=== PATIENT | male | born 1985 | race African-American/Black ===

== ENCOUNTER 2020-01-06 19:34 | Emergency (ER) | payer MEDICAID, SELFPAY ==
[2020-01-06 19:36] VITALS: BP 133/67; PULSE 118; RESP 21; TEMP 37.7; O2SAT 97; BMI 22.4
--- NOTE | 2020-01-06 19:56 | RAD_ITS ---
STUDY: X-RAY - RIGHT ANKLE REASON FOR EXAM: Male, 34 years old. NKI, FEELS TIGHT, SWOLLEN TECHNIQUE: 3 view(s) of the ankle. COMPARISON: None. FINDINGS: Normal visualized distal tibia and fibula. Normal medial and lateral malleoli. Normal tibiotalar articulation and ankle mortise. Normal visualized talus and calcaneus. The visualized subtalar, talonavicular, calcaneocuboid and tarsal articulations are normal. Diffuse soft tissue swelling. RAD/Ankle min 3 Views IMPRESSION: Diffuse nonspecific soft tissue swelling without underlying bone or joint abnormality. Electronically Signed: Anat Up MD at 20:27 EDT , Service support ,
--- NOTE | 2020-01-06 19:58 | ED.VISSUMM ---
- ER Visit Summary Date of Service: 01/06/20 Chief Complaint: Right ankle pain History of Present Illness: The patient is a 34 M who presents with right ankle pain that began tonight. Patient states the pain began suddenly tonight. Patient states the pain is constant. Patient denies twisting his ankle or falling. Patient describes the pain is sharp. Patient states pain is worse with any movement or weightbearing. Patient is to some tingling in his right great toe. Patient states he had a similar episode in the past from an abscess. Patient states he was trying to use warm compresses. Patient denies any discharge or drainage. Patient denies any fevers or chills. Physical Examination: Vital signs are stable. Patient is afebrile. Patient is in no acute distress. Musculoskeletal exam reveals tenderness, edema, and mild erythema over the right ankle. Range of motion was limited in all motions of the right ankle secondary to pain. There is no deformity noted. Pedal pulses are equal bilaterally. Sensation was intact to light touch in all digits. Capillary refill was less than 2 seconds in all digits. There is no tenderness over the proximal fibula or fifth metatarsal area. Test Results: CBC shows a mild leukocytosis of 16.6. Comprehensive metabolic profile was essentially within normal limits. Uric acid was obtained and was normal at 3.2. X-rays of the right ankle were obtained. There is soft tissue swelling but no acute fracture. Emergency Department Course and Treatment: Patient was given a dose of ibuprofen here. Patient is feeling better on reevaluation. Patient was given a prescription for Keflex. Patient was given his first dose here. Patient was instructed to keep the leg elevated. Patient was instructed to follow-up with his primary care physician in 3 to 5 days. Patient understood and was agreeable with the plan. All questions were answered. Disposition: Discharge home Impression: Cellulitis right ankle This note was generated with [employer] dictation software. It may contain incorrect words, spelling, and punctuation that were not noted in review of the chart prior to signing ED Disposition - Plan for ED Patient: Disposition: Home or Assisted Living Diagnosis: Cellulitis of right ankle Instructions: ED Cellulitis Prescriptions: Cephalexin [Keflex] 500 mg PO Q6 #40 cap Transmission Status: Pending to [id number] Referrals: Criss Bergman [NON-STAFF] - 3-5 Days
[2020-01-06] MEDS: Ibuprofen 400 MG Tablet 800 MG PO (20:06)
[2020-01-06 20:16] LABS: Absolute Lymphocyte Count 0.65 X10^3/uL (0.83-4.51); Absolute Neutrophil Count 14.7 X10^3/uL (2.0-7.7); Basophil# 0.02 X10^3/uL; Basophil% 0.1 % (0-1); Eosinophil# 0.09 X10^3/uL; Eosinophils% 0.5 % (0-5); Hematocrit 35.7 % (40-54); Hemoglobin 11.8 g/dL (13.0-16.5); Lymphocyte # 0.65 X10^3/ul (4.0); Lymphocyte % 3.9 % (19-41); Mean Corp Hgb Conc 33.1 g/dL (32-36); Mean Corpuscular Hgb 31.6 pg (27.0-32.0); Mean Corpuscular Volume 95.7 fL (80-94); Mean Platelet Vol. 9.3 fl (6.2-12.0); NRBC Flagged by Analyzer 0 % (0-5); Neutrophil # 14.71 X10^3/uL (2.7-7.7); Platelet Count 221 K/mm3 (150-450); RBC Distribution Width CV 12.4 % (11.6-14.6); RBC Distribution Width SD 43.3 fl (35.1-43.9); Red Blood Count 3.73 M/mm3 (4.6-6.2); White Blood Count 16.6 K/mm3 (4.4-11.0)
[2020-01-06 20:50] LABS: ALB/GLOB Ratio 0.9 RATIO (0.9-2.4); AST(SGOT) 26 U/L (15-37); Alanine Aminotransfer ALT/SGPT 34 U/L (16-61); Albumin, Serum 3.5 g/dL (3.2-5.0); Alkaline Phosphatase 83 U/L (45-117); Anion Gap 6 (5-15); BUN 16 mg/dL (7-18); BUN/Creat Ratio 14.2 RATIO (10-20); Calcium,Total 8.6 mg/dL (8.5-10.1); Chloride 108 mmol/L (98-107); Creatinine, Serum 1.13 mg/dL (0.70-1.30); EST Glomerular Filtration Rate 78 mL/min (>60); Est Glom Filt Rate - Afr Amer 94 mL/min (>60); Globulin 4.1 g/dL (2.2-4.2); Glucose 108 mg/dL (74-106); Potassium 3.7 mmol/L (3.5-5.1); Protein, Total 7.6 g/dL (6.4-8.2); Sodium Level 141 mmol/L (136-145); Uric Acid 3.2 mg/dL (3.5-7.2)
[2020-01-06 20:58] VITALS: BP 120/70; PULSE 99; RESP 18; TEMP 37.2; O2SAT 96
[2020-01-06 21:27] VITALS: BP 106/59; PULSE 94; RESP 16; TEMP 37.2; O2SAT 96
[2020-01-06] MEDS: Cephalexin 500 MG Capsule PO (22:27)
[2020-01-06 22:30] VITALS: BP 97/57; PULSE 77; RESP 19; O2SAT 96
== END 2020-01-06 22:30 | disposition home or self-care (01) ==
PROVIDERS: Emergency Provider Emergency Medicine
DX: L03.115 Cellulitis of right lower limb (principal)
CPT/HCPCS: 73610; 80053; 84550; 85025; 99284; A4216

== ENCOUNTER 2022-05-20 13:34 | Emergency (ER) | payer MEDICAID, SELFPAY ==
[2022-05-20 13:35] VITALS: BP 132/97; PULSE 98; RESP 22; TEMP 37.6; O2SAT 98; BMI 20.3
--- NOTE | 2022-05-20 14:39 | EX.ED.SAOD ---
HPI History of Present Illness Chief Complaint: Substance Abuse Narrative Narrative: 37-year-old male with history of paranoid schizophrenia and drug abuse presenting with altered mental status. He admits to doing methamphetamine a couple of hours ago, and believes there was something else that he used. He is currently audibly and visually hallucinating. Other than to say he hears his family members and his bitch he cannot tell me what they are saying to him. He states that he did call 911 because he did this at his daughter's house and did not want to overdose there. He states he is overdosed before. [facility] Medical History Drug use Paranoid schizophrenia Home Medications NK 05/20/22 [History Last Taken Unknown] Allergy/AdvReac Type Severity Reaction Status Date / Time No Known Allergies Allergy Verified 05/20/22 13:35 Social History Smoking Status: Current every day smoker tobacco type: cigarettes ROS ROS ED Review of Systems ROS Unobtainable: Denies due to encephalopathy Constitutional Constitutional ED: Denies fever(s) or subjective Eyes Eyes: Denies change in vision or diplopia ENT ENT ED: Denies rhinorrhea or sore throat Cardiovascular Cardiovascular: Denies chest pain Respiratory/Chest Respiratory/Chest: Denies cough or dyspnea Gastrointestinal Gastrointestinal: Denies abdominal pain or constipation Genitourinary Genitourinary ED: Denies dysuria Musculoskeletal Musculoskeletal: Denies arthralgias, back pain or myalgias Integumentary Denies abscess or Abrasions Neurologic Neurologic: Denies headache(s) Psychiatric Psychiatric: Reports auditory hallucinations, hallucinations, paranoia and visual hallucinations EXAM Physical Exam Const Vital Signs: 05/20/22 13:35 Temperature 99.6 F H Temperature Source Oral Pulse Rate 98 Respiratory Rate 22 H Blood Pressure 132/97 H Blood Pressure Mean 108 Pulse Ox 98 Oxygen Delivery Method Room Air Positive well nourished and unkempt General Appearance ED: unkempt and irritable HEENT Reports moist mucous membranes Eyes PERRL Neck no lymphadenopathy Chest Wall inspection of chest normal Resp normal respiratory effort and clear to auscultation bilaterally Auscultation: Negative for rales, rhonchi or wheezes Cardio regular rate and regular rhythm Neuro CN's II-XII intact bilaterally Sensorium / Orientation: alert and confused Motor Exam: strength 5/5 throughout Psych Appearance: unkempt Attitude: paranoid Activity / Motor Behavior: psychomotor agitation Mood & Affect: irritable Thought Content: No suicidality, No homicidality and hallucination(s) Positive for auditory and visual Attention / Concentration: attention grossly impaired Insight: fair Judgement: fair MDM MDM MDM Narrative Medical decision making narrative: 37-year-old male with history of paranoid schizophrenia presenting after using methamphetamine a couple of hours ago. He believes he might have another drug in his system. He is hallucinating and seeing his family. He cannot relate what is going on to me. His vital signs are stable he is afebrile. I did obtain some blood work and his CBC and CMP were unremarkable. I suspect he is just high on methamphetamine. He wanted to see if he had other drugs in his system. Prior to be able to test his urine the patient left the emergency room. Is not homicidal or suicidal. I believe he is a harm to himself or others. He is hallucinating and paranoid but he is a paranoid schizophrenic. Impression: 1. History of paranoid schizophrenia 2. History of methamphetamine abuse Lab Data Labs: Laboratory Results - last 24 hr 05/20/22 05/20/22 13:46 13:46 WBC 6.0 RBC 5.02 Hgb 15.7 Hct 47.2 MCV 94.0 MCH 31.3 MCHC 33.3 RDW Std Deviation 42.8 RDW Coeff of Guevara 12.3 Plt Count 240 MPV 10.4 Immature Gran % (Auto) 0.200 Neut % (Auto) 69.3 Lymph % (Auto) 19.2 [place] % (Auto) 10.3 H Eos % (Auto) 0.5 Baso % (Auto) 0.5 Absolute Neuts (auto) 4.2 Absolute Lymphs (auto) 1.16 Nucleated RBC % 0 Sodium 141 Potassium 3.5 Chloride 106 Carbon Dioxide 25.0 Anion Gap 10 BUN 15 Creatinine 1.13 Estim Creat Clear Calc 77.71 Est GFR (MDRD) Af Amer 93 Est GFR (MDRD) Non-Af 77 BUN/Creatinine Ratio 13.3 Glucose 105 Calcium 9.4 Total Bilirubin 0.60 AST 15 ALT 25 Alkaline Phosphatase 62 Total Protein 8.5 H Albumin 4.2 Globulin 4.3 H Albumin/Globulin Ratio 1.0 Discharge Plan Triage Chief Complaint: Substance Abuse Other Complaint: General Illness ED Provider: Christofer Jernigan Dx/Rx/DC Orders Prescriptions: No Action NK Primary Care Provider: Care Physician,No Primary Referrals: Care Physician,No Primary [Primary Care Provider] - Disposition Disposition: Elopement
[2022-05-20 14:50] LABS: Absolute Lymphocyte Count 1.16 X10^3/uL (0.83-4.51); Absolute Neutrophil Count 4.2 X10^3/uL (2.0-7.7); Basophil# 0.03 X10^3/uL; Basophil% 0.5 % (0-1); Eosinophil# 0.03 X10^3/uL; Eosinophils% 0.5 % (0-5); Hematocrit 47.2 % (40-54); Hemoglobin 15.7 g/dL (13.0-16.5); Lymphocyte # 1.16 X10^3/ul (0.83-4.51); Lymphocyte % 19.2 % (19-41); Mean Corp Hgb Conc 33.3 g/dL (32-36); Mean Corpuscular Hgb 31.3 pg (27.0-32.0); Mean Platelet Vol. 10.4 fl (6.2-12.0); Monocyte# 0.62 X10^3/uL; Monocyte% 10.3 % (0-10); NRBC Flagged by Analyzer 0 % (0-5); Neutrophil # 4.19 X10^3/uL (2.7-7.7); Neutrophil % 69.3 % (47-70); Platelet Count 240 K/mm3 (150-450); RBC Distribution Width CV 12.3 % (11.6-14.6); RBC Distribution Width SD 42.8 fl (35.1-43.9); Red Blood Count 5.02 M/mm3 (4.6-6.2)
[2022-05-20 15:06] LABS: AST(SGOT) 15 U/L (15-37); Alanine Aminotransfer ALT/SGPT 25 U/L (16-61); Albumin, Serum 4.2 g/dL (3.2-5.0); Alkaline Phosphatase 62 U/L (45-117); Anion Gap 10 (5-15); BUN 15 mg/dL (7-18); BUN/Creat Ratio 13.3 RATIO (10-20); Calcium,Total 9.4 mg/dL (8.5-10.1); Chloride 106 mmol/L (98-107); Creatinine, Serum 1.13 mg/dL (0.70-1.30); EST Glomerular Filtration Rate 77 mL/min (>60); Est Glom Filt Rate - Afr Amer 93 mL/min (>60); Estimated Creatinine Clearance 77.71 ml/min; Globulin 4.3 g/dL (2.2-4.2); Glucose 105 mg/dL (74-106); Potassium 3.5 mmol/L (3.5-5.1); Protein, Total 8.5 g/dL (6.4-8.2); Sodium Level 141 mmol/L (136-145)
--- NOTE | 2022-05-20 15:10 | NURSING ---
Pt accused this RN and staff of talking about him and threatening him, stated that someone was in his room when he was alone in his room. This RN attempted to reassure pt that he was alone and that there weren't any people in the hallway talking about him. Pt denied hearing voices, however said that he was hearing people at that moment in spite of no person speaking. Pt IV was removed d/t concern that pt would elope. Pt eventually pulled all monitoring devices off self, dressed and left without further treatment.
[2022-05-20 15:39] LABS: Alcohol, Blood (Medical)-Serum < 3.0 mg/dL
== END 2022-05-20 15:00 | disposition left against medical advice (07) ==
PROVIDERS: Emergency Provider Student in an Organized Health Care Education/Training Program; Visit Provider Student in an Organized Health Care Education/Training Program
DX: F20.0 Paranoid schizophrenia (principal); F17.210 Nicotine dependence, cigarettes, uncomplicated
CPT/HCPCS: 80053; 82077; 85025; 99283; A4216

== ENCOUNTER 2022-05-22 05:21 | Emergency (ER) | payer MEDICAID, SELFPAY ==
[2022-05-22 05:21] VITALS: BP 117/65; PULSE 105; RESP 18; TEMP 35.7; O2SAT 100; BMI 19.6
--- NOTE | 2022-05-22 06:14 | EX.ED.VIS.PS ---
HPI HPI - Psych History of Present Illness Chief Complaint: Mental Health Informant: patient Narrative Narrative: From records noting concerns for history of paranoid schizophrenia. Patient presenting increasing paranoia. He states he just got out [facility] ago. He states he would hear voices that would call him however in present he was just learned to ignore them. Since being out, he states he still hearing voices again. He states there was another individual that got out of parole, he states he is concerned that person is out to get him. He states he is friends with this individual previously. Reporting there could have been something involved with the other individual however he would not go into detail about this. He does have history of methamphetamine use he states last use was yesterday morning. Note he was seen 2 days ago in the ED for meth use. He left the department. He states he called the police 3 times this evening due to fear of his life. He states when the police showed up his finger went away. When asked if he sees a counselor or psychiatrist he reports he has people to talk to. Prior similar symptoms: Yes PFSH PFSH Medical History Drug use Paranoid schizophrenia Home Medications NK 05/20/22 [History Last Taken Unknown] Allergy/AdvReac Type Severity Reaction Status Date / Time No Known Allergies Allergy Verified 05/20/22 13:35 Social History Smoking Status: Current every day smoker tobacco type: cigarettes ROS ROS ED Constitutional Constitutional ED: Denies chills, fever(s) or sweats Eyes Eyes: Denies change in vision ENT ENT ED: Denies dysphagia or sore throat Cardiovascular Cardiovascular: Denies chest pain, leg edema, palpitations or racing heartbeat Respiratory/Chest Respiratory/Chest: Denies cough, dyspnea or dyspnea on exertion Gastrointestinal Gastrointestinal: Denies abdominal pain, diarrhea, nausea or vomiting Genitourinary Genitourinary ED: Denies dysuria, hematuria or urinary frequency Musculoskeletal Musculoskeletal: Denies back pain, extremity pain or neck pain Integumentary Denies rash or wounds Neurologic Neurologic: Denies headache(s), paresthesias or weakness Psychiatric Psychiatric: Reports other Details: Paranoia, auditory and visual hallucinations ; Denies suicidal ideation or suicidal thoughts EXAM Physical Exam Const Vital Signs: 05/22/22 05:21 Temperature 96.2 F L Temperature Source Temporal Pulse Rate 105 H Respiratory Rate 18 Blood Pressure 117/65 Blood Pressure Mean 82 Pulse Ox 100 Oxygen Delivery Method Room Air Positive well nourished and well developed Constitutional Narrative: Patient paranoid looking around out the door, he would speak quietly. General Appearance ED: well developed and NAD HEENT Reports moist mucous membranes normocephalic and atraumatic Eyes PERRL, EOMs intact bilaterally and conjunctivae normal General Eye ED: Yes normal appearance of both eyes Neck no lymphadenopathy and supple General: Negative for tenderness Chest Wall Chest: Negative for tenderness Resp normal respiratory effort and normal air movement Effort and Inspection: symmetric chest movement; Negative for respiratory distress Cardio regular rate, regular rhythm and no murmurs Peripheral Pulses: pulses 2+ throughout GI normal to inspection, nondistended, normoactive bowel sounds and non-tender Palpation: Negative for guarding or rebound tenderness present Back/Spine no CVA tenderness and no thoracic nor lumbar tenderness Extremity normal to inspection General Extremety ED: Negative for edema or tenderness General Extremity: Negative for edema Neuro oriented x3, CN's II-XII intact bilaterally and no sensory deficits noted Sensorium / Orientation: awake and alert Psych Psych Narrative: Paranoia reporting auditory and visual hallucinations. Skin no rashes or lesions noted and no wounds MDM MDM MDM Narrative Medical decision making narrative: Interventions / MDM: Differential diagnosis: Paranoia, amphetamine use Diagnosis considered but do not suspect: N/A My EKG interpretation: N/A Imaging independently reviewed and interpreted by myself: N/A External documents reviewed: N/A Test considered but not ordered:N/A ED course: Patient presenting increasing paranoia, patient reporting stories concerning for his life. He has auditory and visual hallucinations. Unclear if the stories are true at this time. Only visit 2 days ago notes paranoid schizophrenia with amphetamine use. He was concerned of his safety. He is having paranoia. I will check labs for medical clearance. He is ordered for Ativan orally to try to help with symptoms. We will plan to have crisis evaluate and try to confirm any psychiatric history in their system. 0619: Per nursing he declined the Ativan. Re-evaluation: stable Disposition discussed with patient/family/significant other: Case discussed with consulting clinician: N/A Lab Data Labs: Laboratory Results - last 24 hr 05/22/22 06:08 Ur Drug Screen Comment Discharge Plan Triage Chief Complaint: Mental Health ED Provider: Kt Sharma Dx/Rx/DC Orders Clinical Impression: Acute paranoia, Methamphetamine abuse Prescriptions: No Action NK Primary Care Provider: Care Physician,No Primary Referrals: Care Physician,No Primary [Primary Care Provider] -
[2022-05-22 06:26] LABS: Amphetamine Urine VISTA POSITIVE (<1000 ng/mL); Barbiturate Urine VISTA NEGATIVE (< 200 ng/mL); Benzodiazepine Urine VISTA NEGATIVE (< 200 ng/mL); Cocaine Urine VISTA NEGATIVE (< 300 ng/mL); Ecstacy Urine VISTA POSITIVE (< 500 ng/mL); Methadone Urine VISTA NEGATIVE (< 300 ng/mL); PCP Urine VISTA NEGATIVE (< 25 ng/mL); THC Urine VISTA POSITIVE (< 50 ng/mL); Vista UDS pH Range 5
[2022-05-22 07:12] LABS: Absolute Lymphocyte Count 0.95 X10^3/uL (0.83-4.51); Absolute Neutrophil Count 4.1 X10^3/uL (2.0-7.7); Basophil# 0.02 X10^3/uL; Basophil% 0.4 % (0-1); Eosinophil# 0.03 X10^3/uL; Eosinophils% 0.5 % (0-5); Hematocrit 48.3 % (40-54); Hemoglobin 15.9 g/dL (13.0-16.5); Lymphocyte # 0.95 X10^3/ul (0.83-4.51); Lymphocyte % 16.8 % (19-41); Mean Corp Hgb Conc 32.9 g/dL (32-36); Mean Corpuscular Volume 97.2 fL (80-94); Mean Platelet Vol. 10.3 fl (6.2-12.0); Monocyte# 0.55 X10^3/uL; Monocyte% 9.7 % (0-10); NRBC Flagged by Analyzer 0 % (0-5); Neutrophil % 72.2 % (47-70); Platelet Count 244 K/mm3 (150-450); RBC Distribution Width CV 12.3 % (11.6-14.6); RBC Distribution Width SD 44.1 fl (35.1-43.9); Red Blood Count 4.97 M/mm3 (4.6-6.2); White Blood Count 5.7 K/mm3 (4.4-11.0)
[2022-05-22 07:26] LABS: Anion Gap 9 (5-15); BUN 23 mg/dL (7-18); BUN/Creat Ratio 18.7 RATIO (10-20); Calcium,Total 9.5 mg/dL (8.5-10.1); Chloride 108 mmol/L (98-107); Creatinine, Serum 1.23 mg/dL (0.70-1.30); EST Glomerular Filtration Rate 70 mL/min (>60); Est Glom Filt Rate - Afr Amer 84 mL/min (>60); Estimated Creatinine Clearance 68.77 ml/min; Glucose 98 mg/dL (74-106); Potassium 3.5 mmol/L (3.5-5.1); Sodium Level 144 mmol/L (136-145)
[2022-05-22 08:06] LABS: Alcohol, Blood (Medical)-Serum < 3.0 mg/dL
--- NOTE | 2022-05-22 08:48 | ED.RN ---
MARIBELL RN AMBULATING BY ROOM AT 0800. PT NOT PRESENT IN ROOM, NOT FOUND IN DEPARTMENT. PT ELOPED. DR. HERNANDEZ INFORMED.
== END 2022-05-22 09:19 | disposition left against medical advice (07) ==
PROVIDERS: Emergency Provider Emergency Medicine; Visit Provider Emergency Medicine
DX: F20.0 Paranoid schizophrenia (principal); F15.10 Other stimulant abuse, uncomplicated; F17.210 Nicotine dependence, cigarettes, uncomplicated
CPT/HCPCS: 99281; 80048; 80307; 82077; 85025; 99282

== ENCOUNTER 2022-05-22 16:01 | Emergency (ER) | payer MEDICAID, SELFPAY ==
[2022-05-22 16:01] VITALS: BP 113/100; PULSE 117; RESP 18; TEMP 36.9; O2SAT 99
== END 2022-05-22 16:07 | disposition left against medical advice (07) ==
LOC: ED 16:07
DX: Z53.21 Procedure and treatment not carried out due to patient leaving prior to being seen by health care provider (principal)

== ENCOUNTER 2022-05-24 22:25 | Emergency (ER) | payer MEDICAID, SELFPAY ==
[2022-05-24 22:27] VITALS: BP 141/128; PULSE 110; RESP 16; TEMP 36.1; O2SAT 100; BMI 20.6
--- NOTE | 2022-05-24 22:51 | EDS_ITS ---
HPI HPI - Psych History of Present Illness Chief Complaint: Mental Health Informant: patient Narrative Narrative: Patient brought in by police secondary to paranoia. Patient has been here 2 other times this week secondary to paranoia. He states that he keeps seeing people and tonight thought he saw someone with a gun. He feels that there are people after him. Although he had previously denied suicidal or homicidal ideation, he does tell me he has suicidal thoughts and does not want to live like this. He states he has tried to hurt himself before but never told anyone about it. PFSH PFS Medical History Drug use Paranoid schizophrenia Home Medications NK 05/20/22 [History Last Taken Unknown] Allergy/AdvReac Type Severity Reaction Status Date / Time No Known Allergies Allergy Verified 05/22/22 16:03 Social History Smoking Status: Current every day smoker tobacco type: cigarettes ROS ROS ED Constitutional Constitutional ED: Denies chills or fever(s) ENT ENT ED: Denies rhinorrhea or sore throat Cardiovascular Cardiovascular: Denies chest pain or palpitations Respiratory/Chest Respiratory/Chest: Denies cough or dyspnea Gastrointestinal Gastrointestinal: Denies abdominal pain, nausea or vomiting Musculoskeletal Musculoskeletal: Denies extremity pain Neurologic Neurologic: Denies headache(s) or weakness Psychiatric Psychiatric: Reports anxiety and suicidal ideation Allergic/Immunologic Allergic/Immunologic ED: Denies lip swelling or urticaria EXAM Physical Exam Narrative Exam Narrative: Patient paranoid, standing at the door looking over my shoulder at anyone in the hallway. Will be intermittently pacing the room. Const Vital Signs: 05/24/22 22:27 05/25/22 01:02 05/25/22 02:00 Temperature 97 F L Temperature Source Temporal Pulse Rate 110 H Respiratory Rate 16 16 16 Blood Pressure 141/128 H Blood Pressure Mean 132 Pulse Ox 100 Oxygen Delivery Method Room Air Room Air 05/25/22 03:18 05/25/22 06:00 05/25/22 04:10 Temperature Temperature Source Pulse Rate 89 Respiratory Rate 16 16 16 Blood Pressure Blood Pressure Mean Pulse Ox 98 Oxygen Delivery Method Room Air Room Air Room Air 05/25/22 07:00 Temperature Temperature Source Pulse Rate Respiratory Rate 16 Blood Pressure Blood Pressure Mean Pulse Ox Oxygen Delivery Method Positive well nourished HEENT Reports moist mucous membranes Eyes PERRL and EOMs intact bilaterally Neck no lymphadenopathy Resp normal respiratory effort and clear to auscultation bilaterally Cardio Rate: regular rate Rhythm: regular rhythm GI non-tender Neuro Neuro Narrative: Pacing in the room. Sensorium / Orientation: alert Psych Attitude: paranoid Activity / Motor Behavior: fidgetting Speech: soft Mood & Affect: anxious MDM MDM MDM Narrative Medical decision making narrative: Patient did admit to suicidal ideation to me stating that he did not want to live this way any longer. He also admits to prior suicide attempts but states he never told anyone about it. Lab work for medical clearance obtained. Patient was given 2 mg of p.o. Ativan to help with his paranoia and anxiety. History & Record Review Additional record(s) reviewed:: Prior ED visit Lab Data Labs: Laboratory Results - last 24 hr 05/25/22 05/25/22 05/25/22 01:00 01:00 01:00 WBC 5.9 RBC 4.58 L Hgb 14.5 Hct 44.6 MCV 97.4 H MCH 31.7 MCHC 32.5 RDW Std Deviation 43.4 RDW Coeff of Guevara 12.0 Plt Count 249 MPV 10.2 Immature Gran % (Auto) 0.300 Neut % (Auto) 75.4 H Lymph % (Auto) 16.9 L [place] % (Auto) 6.6 Eos % (Auto) 0.5 Baso % (Auto) 0.3 Absolute Neuts (auto) 4.5 Absolute Lymphs (auto) 1.00 Nucleated RBC % 0 Sodium 138 Potassium 3.7 Chloride 105 Carbon Dioxide 25.0 Anion Gap 8 BUN 23 H Creatinine 1.27 Estim Creat Clear Calc 69.89 Est GFR (MDRD) Af Amer 81 Est GFR (MDRD) Non-Af 67 BUN/Creatinine Ratio 18.1 Glucose 101 Calcium 9.3 Ethyl Alcohol < 3.0 Treatment and Re-Evaluation Narrative: After receiving the Ativan patient was able to calm down and fall asleep. Lab work was able to be obtained and is unremarkable. His alcohol level is negative. At this time we are still awaiting urine tox screen. Patient be signed out to oncoming physician for repeat evaluation and evaluation by [facility]. Discharge Plan Triage Chief Complaint: Mental Health ED Provider: Ivone Ricks Dx/Rx/DC Orders Clinical Impression: Suicidal ideation, Paranoia Prescriptions: No Action NK Primary Care Provider: Care Physician,No Primary Referrals: Care Physician,No Primary [Primary Care Provider] -
[2022-05-24] MEDS: LORazepam 1 MG Tablet 2 MG PO (23:21)
[2022-05-25] VITALS (19 sets, daily range): BP systolic 100–125; BP diastolic 73–86; PULSE 80–89; RESP 16–18; TEMP 36.1–36.8; O2SAT 95–98
[2022-05-25 01:07] LABS: Absolute Neutrophil Count 4.5 X10^3/uL (2.0-7.7); Basophil# 0.02 X10^3/uL; Basophil% 0.3 % (0-1); Eosinophil# 0.03 X10^3/uL; Eosinophils% 0.5 % (0-5); Hematocrit 44.6 % (40-54); Hemoglobin 14.5 g/dL (13.0-16.5); Lymphocyte % 16.9 % (19-41); Mean Corp Hgb Conc 32.5 g/dL (32-36); Mean Corpuscular Hgb 31.7 pg (27.0-32.0); Mean Corpuscular Volume 97.4 fL (80-94); Mean Platelet Vol. 10.2 fl (6.2-12.0); Monocyte# 0.39 X10^3/uL; Monocyte% 6.6 % (0-10); NRBC Flagged by Analyzer 0 % (0-5); Neutrophil # 4.46 X10^3/uL (2.7-7.7); Neutrophil % 75.4 % (47-70); Platelet Count 249 K/mm3 (150-450); RBC Distribution Width SD 43.4 fl (35.1-43.9); Red Blood Count 4.58 M/mm3 (4.6-6.2); White Blood Count 5.9 K/mm3 (4.4-11.0)
[2022-05-25 01:37] LABS: Alcohol, Blood (Medical)-Serum < 3.0 mg/dL
[2022-05-25 01:39] LABS: Anion Gap 8 (5-15); BUN 23 mg/dL (7-18); BUN/Creat Ratio 18.1 RATIO (10-20); Calcium,Total 9.3 mg/dL (8.5-10.1); Chloride 105 mmol/L (98-107); Creatinine, Serum 1.27 mg/dL (0.70-1.30); EST Glomerular Filtration Rate 67 mL/min (>60); Est Glom Filt Rate - Afr Amer 81 mL/min (>60); Estimated Creatinine Clearance 69.89 ml/min; Glucose 101 mg/dL (74-106); Potassium 3.7 mmol/L (3.5-5.1); Sodium Level 138 mmol/L (136-145)
[2022-05-25 10:32] LABS: Amphetamine Urine VISTA POSITIVE (<1000 ng/mL); Barbiturate Urine VISTA NEGATIVE (< 200 ng/mL); Benzodiazepine Urine VISTA NEGATIVE (< 200 ng/mL); Cocaine Urine VISTA NEGATIVE (< 300 ng/mL); Ecstacy Urine VISTA POSITIVE (< 500 ng/mL); Methadone Urine VISTA NEGATIVE (< 300 ng/mL); PCP Urine VISTA NEGATIVE (< 25 ng/mL); THC Urine VISTA POSITIVE (< 50 ng/mL); Vista UDS pH Range 5
--- NOTE | 2022-05-25 11:04 | NURSING ---
CALLED [facility], TALKED TO ANSWERING SERVICE
--- NOTE | 2022-05-25 11:05 | NURSING ---
FAXED CHART TO [facility]
--- NOTE | 2022-05-25 14:19 | EKG12_ITS ---
Test Reason : [facility] [place] [facility] [place] Blood Pressure : / mmHG Vent. Rate : 095 BPM Atrial Rate : 095 BPM P-R Int : 112 ms QRS Dur : 088 ms QT Int : 374 ms P-R-T Axes : 077 080 077 degrees QTc Int : 469 ms Normal sinus rhythm Minimal voltage criteria for LVH, may be normal variant ( Sokolow-Ray ) Borderline ECG Confirmed by AMMON JORDAN, GNEEVA ([id number]), editor producer BRENDA RAMIREZ ([id number]) on 05/27/2022 8:39:24 AM Referred By: Confirmed By:GENEVA VERDE MD
--- NOTE | 2022-05-25 14:25 | NURSING ---
NO OLD EKGS
--- NOTE | 2022-05-25 17:55 | NURSING ---
DECLINED AT [facility]
[2022-05-25 20:32] LABS: AST(SGOT) 20 U/L (15-37); Alanine Aminotransfer ALT/SGPT 21 U/L (16-61); Albumin, Serum 4.4 g/dL (3.2-5.0); Alkaline Phosphatase 53 U/L (45-117); Bilirubin, Direct 0.22 mg/dL (0.00-0.30); Globulin 3.9 g/dL (2.2-4.2); Protein, Total 8.3 g/dL (6.4-8.2)
[2022-05-26 04:00] VITALS: RESP 16
[2022-05-26 06:00] VITALS: RESP 16
--- NOTE | 2022-05-26 07:59 | ED.RN ---
FAXED LIVER ENZYMES RESULTS TO [facility] PER THEIR REQUEST
[2022-05-26 09:15] VITALS: BP 128/70; PULSE 80; RESP 14; O2SAT 100
== END 2022-05-26 09:50 ==
PROVIDERS: Student in an Organized Health Care Education/Training Program; Emergency Provider Emergency Medicine; Visit Provider Emergency Medicine
DX: R45.851 Suicidal ideations (principal); F22 Delusional disorders; F17.210 Nicotine dependence, cigarettes, uncomplicated
CPT/HCPCS: 36415; 80048; 80076; 80307; 82077; 85025; 87426; 93005; 99285

== ENCOUNTER 2022-06-03 19:18 | Emergency (ER) | payer MEDICAID, SELFPAY ==
[2022-06-03 19:19] VITALS: BP 148/91; PULSE 130; RESP 13; TEMP 36.1; O2SAT 94
[2022-06-03 19:55] VITALS: O2SAT 99; BMI 21.6
[2022-06-03 20:42] LABS: Absolute Lymphocyte Count 1.07 X10^3/uL (0.83-4.51); Absolute Neutrophil Count 6.7 X10^3/uL (2.0-7.7); Basophil# 0.02 X10^3/uL; Basophil% 0.2 % (0-1); Eosinophil# 0.03 X10^3/uL; Eosinophils% 0.3 % (0-5); Hematocrit 42.3 % (40-54); Lymphocyte # 1.07 X10^3/ul (0.83-4.51); Lymphocyte % 12.4 % (19-41); Mean Corp Hgb Conc 33.1 g/dL (32-36); Mean Corpuscular Volume 96.6 fL (80-94); Mean Platelet Vol. 9.5 fl (6.2-12.0); Monocyte# 0.79 X10^3/uL; Monocyte% 9.2 % (0-10); NRBC Flagged by Analyzer 0 % (0-5); Neutrophil # 6.67 X10^3/uL (2.7-7.7); Neutrophil % 77.4 % (47-70); Platelet Count 297 K/mm3 (150-450); RBC Distribution Width CV 12.7 % (11.6-14.6); Red Blood Count 4.38 M/mm3 (4.6-6.2); White Blood Count 8.6 K/mm3 (4.4-11.0)
[2022-06-03 20:56] LABS: Alcohol, Blood (Medical)-Serum < 3.0 mg/dL; Anion Gap 5 (5-15); BUN 8 mg/dL (7-18); BUN/Creat Ratio 6.9 RATIO (10-20); Calcium,Total 8.8 mg/dL (8.5-10.1); Chloride 106 mmol/L (98-107); Creatinine, Serum 1.16 mg/dL (0.70-1.30); EST Glomerular Filtration Rate 74 mL/min (>60); Est Glom Filt Rate - Afr Amer 90 mL/min (>60); Estimated Creatinine Clearance 80.18 ml/min; Glucose 135 mg/dL (74-106); Potassium 3.8 mmol/L (3.5-5.1); Sodium Level 140 mmol/L (136-145)
--- NOTE | 2022-06-03 21:20 | EX.ED.DYSGE1 ---
HPI History of Present Illness Chief Complaint: Overdose Detail of Chief Complaint: Medical clearance Narrative Narrative: Patient brought in by police for medical clearance for senior living. Per report, patient was [place] nearly un[place]. I am told that they had Narcan drawn out but never had to give it to the patient. There were some reports from other people that he may have taken heroin or meth. Patient was recently in the emergency room and transferred to [facility] for suicidal ideation. He is not able to tell me when he got out of the hospital. He denies to me that he took any drugs. [facility] Medical History Drug use Paranoid schizophrenia Home Medications NK 05/20/22 [History Last Taken Unknown] Allergy/AdvReac Type Severity Reaction Status Date / Time No Known Allergies Allergy Verified 06/03/22 19:22 Social History Smoking Status: Current every day smoker tobacco type: cigarettes ROS ROS ED Constitutional Constitutional ED: Denies chills or fever(s) Eyes Eyes: Denies change in vision or discharge from eye(s) ENT ENT ED: Denies discharge from eye(s), rhinorrhea or sore throat Cardiovascular Cardiovascular: Denies chest pain or palpitations Respiratory/Chest Respiratory/Chest: Denies cough or dyspnea Gastrointestinal Gastrointestinal: Denies abdominal pain, nausea or vomiting Musculoskeletal Musculoskeletal: Denies back pain or extremity pain Integumentary Denies Abrasions or rash Neurologic Neurologic: Denies headache(s) or weakness Psychiatric Psychiatric: Denies depression Allergic/Immunologic Allergic/Immunologic ED: Denies lip swelling or urticaria EXAM Physical Exam Narrative Exam Narrative: Patient sitting in bedside chair. He is intermittently sleepy but will awaken and answer questions appropriately. Const Vital Signs: 06/03/22 19:19 06/03/22 19:55 Temperature 97 F L Temperature Source Temporal Pulse Rate 130 H Respiratory Rate 13 Blood Pressure 148/91 H Blood Pressure Mean 110 Pulse Ox 94 99 Oxygen Delivery Method Room Air Room Air Positive well nourished and well developed General Appearance ED: well developed HEENT Reports normocephalic and head/scalp atraumatic Eyes PERRL and EOMs intact bilaterally Neck supple Chest Wall inspection of chest normal and palpation of chest normal Resp normal respiratory effort and clear to auscultation bilaterally Cardio regular rhythm Rate: tachycardic GI non-tender Palpation: soft Extremity normal to inspection Neuro oriented x3 and no sensory deficits noted Sensorium / Orientation: alert Motor Exam: strength 5/5 throughout Psych Mood & Affect: depressed Skin no rashes or lesions noted MDM MDM MDM Narrative Medical decision making narrative: Patient's heart rate is 130 on arrival. His O2 sat is normal. Given that we are unsure if he actually took anything he did agree to lab work and a urine tox screen. Blood work was obtained and unremarkable. EtOH is less than 3. Patient eloped from the emergency room prior to giving us a urine sample. I had been notified by police that the patient was not pink slipped and was not under arrest. Lab Data Labs: Laboratory Results - last 24 hr 06/03/22 06/03/22 06/03/22 20:25 20:25 20:25 WBC 8.6 RBC 4.38 L Hgb 14.0 Hct 42.3 MCV 96.6 H MCH 32.0 MCHC 33.1 RDW Std Deviation 45.0 H RDW Coeff of Guevara 12.7 Plt Count 297 MPV 9.5 Immature Gran % (Auto) 0.500 Neut % (Auto) 77.4 H Lymph % (Auto) 12.4 L [place] % (Auto) 9.2 Eos % (Auto) 0.3 Baso % (Auto) 0.2 Absolute Neuts (auto) 6.7 Absolute Lymphs (auto) 1.07 Nucleated RBC % 0 Sodium 140 Potassium 3.8 Chloride 106 Carbon Dioxide 29.0 Anion Gap 5 BUN 8 Creatinine 1.16 Estim Creat Clear Calc 80.18 Est GFR (MDRD) Af Amer 90 Est GFR (MDRD) Non-Af 74 BUN/Creatinine Ratio 6.9 L Glucose 135 H Calcium 8.8 Ethyl Alcohol < 3.0 Discharge Plan Triage Chief Complaint: Overdose ED Provider: Ivone Ricks Dx/Rx/DC Orders Clinical Impression: Sleepiness Prescriptions: No Action NK Primary Care Provider: Care Physician,No Primary Referrals: Care Physician,No Primary [Primary Care Provider] - Disposition Disposition: Elopement
--- NOTE | 2022-06-03 22:00 | NURSING ---
pt ambulating in hallway looking for exit to leave. pt does not want to stay for treatment. set up and charger and doctor up dated.
== END 2022-06-03 21:00 | disposition left against medical advice (07) ==
PROVIDERS: Emergency Provider Emergency Medicine; Visit Provider Emergency Medicine
DX: R40.0 Somnolence (principal); F17.210 Nicotine dependence, cigarettes, uncomplicated
CPT/HCPCS: 80048; 82077; 85025; 99283

== ENCOUNTER 2022-07-17 21:22 | Emergency (ER) | payer MEDICAID, SELFPAY ==
[2022-07-17 21:23] VITALS: BP 137/73; PULSE 124; RESP 19; TEMP 36.4; O2SAT 97
[2022-07-17 21:27] VITALS: BMI 19.5
--- NOTE | 2022-07-17 21:51 | CT_ITS ---
STUDY: CT BRAIN WITHOUT CONTRAST REASON FOR EXAM: Male, 37 years old. ams RADIATION DOSAGE (If Supplied By Facility): CTDIvol = ( 44.99 ) mGy, DLP = ( 812.98 ) mGycm TECHNIQUE: Transaxial CT imaging of the brain was performed without administration of intravenous contrast material. Individualized dose optimization techniques were used for this CT. COMPARISON: No relevant priors. FINDINGS: Normal soft tissue structures. Normal calvarium. Normal size ventricles and extra-axial spaces for the patient''s age. Normal white matter tracts of the cerebral hemispheres. Normal basal ganglia and thalami. Normal brainstem. Normal cerebellum. There is no intracranial hemorrhage. There are no findings of an acute ischemic infarction. Normal visualized paranasal sinuses. CT/Brain/Head without Contrast IMPRESSION: Normal unenhanced CT scan of the brain. Electronically Signed: Hemal Morales DO at 23:15 EDT ,
[2022-07-17] MEDS: Ziprasidone IM 20 MG/ML VIAL IM (21:55)
--- NOTE | 2022-07-17 22:45 | RAD_ITS ---
INDICATION: ams EXAMINATION/TECHNIQUE: X-RAY - XR Chest 1 View COMPARISON: FINDINGS: LINES/DEVICES: None. LUNGS: No consolidation, edema or effusion. No pneumothorax. MEDIASTINUM AND CARDIOVASCULAR STRUCTURES: Cardiac silhouette not enlarged. Central airways and mediastinal contour are unremarkable. BONES AND SOFT TISSUES: Unremarkable. RAD/Chest 1 View (Portable) IMPRESSION: No radiographic evidence of acute cardiopulmonary disease. Electronically Signed: Hemal Morales DO at 23:06 EDT ,
[2022-07-17 22:46] LABS: Absolute Lymphocyte Count 0.61 X10^3/uL (0.83-4.51); Absolute Neutrophil Count 8.2 X10^3/uL (2.0-7.7); Basophil# 0.03 X10^3/uL; Basophil% 0.3 % (0-1); Eosinophil# 0.01 X10^3/uL; Eosinophils% 0.1 % (0-5); Hematocrit 42.7 % (40-54); Hemoglobin 13.9 g/dL (13.0-16.5); Lymphocyte # 0.61 X10^3/ul (0.83-4.51); Lymphocyte % 6.4 % (19-41); Mean Corp Hgb Conc 32.6 g/dL (32-36); Mean Corpuscular Hgb 31.9 pg (27.0-32.0); Mean Corpuscular Volume 97.9 fL (80-94); Monocyte# 0.59 X10^3/uL; Monocyte% 6.2 % (0-10); NRBC Flagged by Analyzer 0 % (0-5); Neutrophil # 8.24 X10^3/uL (2.7-7.7); Neutrophil % 86.7 % (47-70); Platelet Count 322 K/mm3 (150-450); RBC Distribution Width CV 12.7 % (11.6-14.6); RBC Distribution Width SD 45.5 fl (35.1-43.9); Red Blood Count 4.36 M/mm3 (4.6-6.2); White Blood Count 9.5 K/mm3 (4.4-11.0)
[2022-07-17 23:05] LABS: ALB/GLOB Ratio 0.8 RATIO (0.9-2.4); AST(SGOT) 32 U/L (15-37); Alanine Aminotransfer ALT/SGPT 34 U/L (16-61); Albumin, Serum 3.6 g/dL (3.2-5.0); Alkaline Phosphatase 87 U/L (45-117); Anion Gap 12 (5-15); BUN 10 mg/dL (7-18); BUN/Creat Ratio 5.5 RATIO (10-20); Calcium,Total 9.6 mg/dL (8.5-10.1); Chloride 108 mmol/L (98-107); Creatinine, Serum 1.83 mg/dL (0.70-1.30); EST Glomerular Filtration Rate 44 mL/min (>60); Est Glom Filt Rate - Afr Amer 53 mL/min (>60); Estimated Creatinine Clearance 45.99 ml/min; Globulin 4.6 g/dL (2.2-4.2); Glucose 91 mg/dL (74-106); Potassium 4.1 mmol/L (3.5-5.1); Protein, Total 8.2 g/dL (6.4-8.2); Sodium Level 143 mmol/L (136-145)
[2022-07-17 23:07] LABS: Alcohol, Blood (Medical)-Serum < 3.0 mg/dL
[2022-07-17] MEDS: 0.9% Normal Saline 1,000 ML 999 ML IV (23:32)
[2022-07-17 23:33] VITALS: BP 118/88; PULSE 100; RESP 18; O2SAT 95
[2022-07-17 23:56] LABS: Amphetamine Urine VISTA POSITIVE (<1000 ng/mL); Barbiturate Urine VISTA NEGATIVE (< 200 ng/mL); Benzodiazepine Urine VISTA NEGATIVE (< 200 ng/mL); Cocaine Urine VISTA NEGATIVE (< 300 ng/mL); Ecstacy Urine VISTA POSITIVE (< 500 ng/mL); Methadone Urine VISTA NEGATIVE (< 300 ng/mL); PCP Urine VISTA NEGATIVE (< 25 ng/mL); THC Urine VISTA POSITIVE (< 50 ng/mL); Vista UDS pH Range 5
--- NOTE | 2022-07-17 23:56 | EDS_ITS ---
HPI History of Present Illness Chief Complaint: Alt LOC Narrative Narrative: 37-year-old male with history of schizophrenia and drug abuse presenting with altered mental status. Raymundo BUNCH found the patient in the street rolling around. Sometimes he is conscious and sometimes he is not. He is unable to be redirected. He is very agitated. He tried to stand up on the bed and jump. He had to be restrained. PFSH PFS Medical History Drug use Paranoid schizophrenia Home Medications NK 05/20/22 [History Last Taken Unknown] Allergy/AdvReac Type Severity Reaction Status Date / Time No Known Allergies Allergy Verified 07/17/22 21:28 Social History Smoking Status: Current every day smoker tobacco type: cigarettes ROS ROS ED Review of Systems ROS Unobtainable: due to mental condition and due to mental status EXAM Physical Exam Const Vital Signs: 07/17/22 21:23 07/17/22 23:33 Temperature 97.6 F L Temperature Source Temporal Pulse Rate 124 H 100 Respiratory Rate 19 H 18 Blood Pressure 137/73 H 118/88 H Blood Pressure Mean 94 98 Pulse Ox 97 95 Oxygen Delivery Method Room Air Room Air MDM MDM MDM Narrative Medical decision making narrative: 37-year-old male with history of schizophrenia and drug abuse presenting with altered mental status. He has been very erratic here and difficult to control. Patient received 20 of Geodon. Since patient was found in the road I did obtain screening lab work and imaging. CBC shows no leukocytosis. Hemoglobin hematocrit are stable. Platelets are normal. Creatinine is elevated today at 1.83 and the patient was given 2 L of IV fluids. LFTs are normal. EtOH negative. Chest x-ray my interpretation shows no acute cardiopulmonary process. The radiologist are present and agrees. CT brain negative for intracranial findings. Urine drug screen positive for cannabinoids, MDMA, methamphetamine. Patient will be monitored. He will have to be reassessed once he is more awake and alert. Impression: 1. Altered mental status 2. due to drug abuse 3. History of schizophrenia Lab Data Attestation: I reviewed the patient's lab results. Labs: Laboratory Results - last 24 hr 07/17/22 07/17/22 07/17/22 22:35 22:35 22:35 WBC 9.5 RBC 4.36 L Hgb 13.9 Hct 42.7 MCV 97.9 H MCH 31.9 MCHC 32.6 RDW Std Deviation 45.5 H RDW Coeff of Guevara 12.7 Plt Count 322 MPV 9.0 Immature Gran % (Auto) 0.300 Neut % (Auto) 86.7 H Lymph % (Auto) 6.4 L [place] % (Auto) 6.2 Eos % (Auto) 0.1 Baso % (Auto) 0.3 Absolute Neuts (auto) 8.2 H Absolute Lymphs (auto) 0.61 L Nucleated RBC % 0 Sodium 143 Potassium 4.1 Chloride 108 H Carbon Dioxide 23.0 Anion Gap 12 BUN 10 Creatinine 1.83 H Estim Creat Clear Calc 45.99 Est GFR (MDRD) Af Amer 53 L Est GFR (MDRD) Non-Af 44 L BUN/Creatinine Ratio 5.5 L Glucose 91 Calcium 9.6 Total Bilirubin 0.20 AST 32 ALT 34 Alkaline Phosphatase 87 Total Protein 8.2 Albumin 3.6 Globulin 4.6 H Albumin/Globulin Ratio 0.8 L Urine Opiates Screen Urine Methadone Screen Ur Barbiturates Screen Ur Phencyclidine Scrn Ur Amphetamines Screen MDMA (Ecstasy) Screen U Benzodiazepines Scrn Urine Cocaine Screen U Cannabinoids Screen Ur Drug Screen Comment Ethyl Alcohol < 3.0 07/17/22 23:26 WBC RBC Hgb Hct MCV MCH MCHC RDW Std Deviation RDW Coeff of Guevara Plt Count MPV Immature Gran % (Auto) Neut % (Auto) Lymph % (Auto) [place] % (Auto) Eos % (Auto) Baso % (Auto) Absolute Neuts (auto) Absolute Lymphs (auto) Nucleated RBC % Sodium Potassium Chloride Carbon Dioxide Anion Gap BUN Creatinine Estim Creat Clear Calc Est GFR (MDRD) Af Amer Est GFR (MDRD) Non-Af BUN/Creatinine Ratio Glucose Calcium Total Bilirubin AST ALT Alkaline Phosphatase Total Protein Albumin Globulin Albumin/Globulin Ratio Urine Opiates Screen NEGATIVE Urine Methadone Screen NEGATIVE Ur Barbiturates Screen NEGATIVE Ur Phencyclidine Scrn NEGATIVE Ur Amphetamines Screen POSITIVE H MDMA (Ecstasy) Screen POSITIVE H U Benzodiazepines Scrn NEGATIVE Urine Cocaine Screen NEGATIVE U Cannabinoids Screen POSITIVE H Ur Drug Screen Comment Ethyl Alcohol Radiography Diagnostic Testing: Clinical Impression(s) from Imaging Studies Brain CT 07/17/22 21:51 IMPRESSION: Normal unenhanced CT scan of the brain. Electronically Signed: Hemal Morales DO at 23:15 EDT , Chest X-Ray 07/17/22 22:45 IMPRESSION: No radiographic evidence of acute cardiopulmonary disease. Electronically Signed: Hemal Morales DO at 23:06 EDT , Discharge Plan Triage Chief Complaint: Alt LOC ED Provider: Christofer Jernigan Dx/Rx/DC Orders Prescriptions: No Action NK Primary Care Provider: Care Physician,No Primary Referrals: Care Physician,No Primary [Primary Care Provider] -
[2022-07-18] VITALS: PULSE 100; RESP 16; O2SAT 97
[2022-07-18] MEDS: 0.9% Normal Saline 1,000 ML 999 ML IV (00:48)
[2022-07-18 01:00] VITALS: BP 123/69; PULSE 97; RESP 14; O2SAT 99
[2022-07-18 02:00] VITALS: RESP 16
[2022-07-18 03:00] VITALS: RESP 15
[2022-07-18 04:09] VITALS: PULSE 87; RESP 16; O2SAT 100
== END 2022-07-18 04:09 | disposition home or self-care (01) ==
PROVIDERS: Emergency Provider Student in an Organized Health Care Education/Training Program; Visit Provider Student in an Organized Health Care Education/Training Program
DX: R41.82 Altered mental status, unspecified (principal); F17.210 Nicotine dependence, cigarettes, uncomplicated
CPT/HCPCS: 36415; 70450; 71045; 80053; 80307; 82077; 85025; 96360; 96361; 96372; 99285; J7030; A4216; J3486